=== PATIENT | female | born 1990 ===

== ENCOUNTER 2017-02-07 08:09 | Day surgery (SDC) | payer SELFPAY ==
[2017-02-07] MEDS ORDERED: Strong Iodine Topical Sol. 5%-10% ONE (08:49)
[2017-02-07 08:56] VITALS: O2SAT 100
[2017-02-07] MEDS ORDERED: Lactated Ringer's 1,000 ML IV ONE ×2 (08:57)
[2017-02-07] MEDS: ceFAZolin IV 2 gm in Dextrose 0 GM/0 ML BAG IVPB ONE ×2 (08:57→09:20)
[2017-02-07] MEDS ORDERED: cefOXitin IV 2 gm in Dextrose 2 GM/50 ML BAG IVPB ONE (09:01)
[2017-02-07] MEDS ORDERED: Propofol 10 mg/ml Inj (20 ML) ONE (09:21)
[2017-02-07] MEDS ORDERED: Midazolam 2 MG/2 ML VIAL ONE (09:21)
[2017-02-07] MEDS ORDERED: Vasopressin 20 Units/ml Inj ONE (09:24)
--- NOTE | 2017-02-07 09:57 | PCM.SURG1 ---
Surgeon's Initial Post Op Note - Surgeon's Notes Surgeon: Dr. Patricia Napier In Service Coordinator: none Type of Anesthesia: General LMA Pre-Operative Diagnosis: HERBIE II-III Operative Findings: Normal appearing cervix, uterus approximately 8 week sized anteverted and retroflexed Post-Operative Diagnosis: same Operation Performed: LEEP Specimen/Specimens Removed: portion of cervix Estimated Blood Loss: EBL {In ML}: 1 Blood Products Given: N/A Drains Used: No Drains Post-Op Condition: Good Date of Surgery/Procedure: 02/07/17 Time of Surgery/Procedure: 09:30
--- NOTE | 2017-02-07 09:59 | CP.PCM.DIS ---
Provider - Provider Date of Admission: 02/07/17 Attending physician: Patricia Napier Time Spent in preparation of Discharge (in minutes): 10 Diagnosis - Discharge Diagnosis (1) HERBIE III (cervical intraepithelial neoplasia III) Status: Acute (2) HERBIE II (cervical intraepithelial neoplasia II) Status: Acute Hospital Course - Hospital Course Hospital Course: Patient underwent the previously mentioned procedure and tolerated procedure well. She was then discharged home in stable condition after she was ambulating , voiding and tolerating regular diet. - Date & Time of H&P Date of H&P: 02/07/17 Time of H&P: 09:00 Discharge Plan - Follow Up Plan Disposition: DISCHARGED TO HOME CARE
[2017-02-07] MEDS ORDERED: HYDROmorphone 0.5 mg/0.5 ml ISec IVP PRN (10:13)
[2017-02-07] MEDS ORDERED: Lactated Ringer's 1,000 ML IV SCH (10:15)
--- NOTE | 2017-02-07 11:37 | OP ---
PROCEDURE DATE: 02/07/2017 PREOPERATIVE DIAGNOSES: Cervical intraepithelial neoplasia 2 and cervical intraepithelial neoplasia 3. POSTOPERATIVE DIAGNOSES: Cervical intraepithelial neoplasia 2 and cervical intraepithelial neoplasia 3. SURGEON: Patricia Napier MD TYPE OF ANESTHESIA: General LMA. INTRAOPERATIVE FINDINGS: Normal-appearing cervix; uterus approximately 8-week size, anteverted and retroflexed. PROCEDURE: Loop electrosurgical excision procedure. SPECIMENS REMOVED: A portion of cervix as well as IUD. ESTIMATED BLOOD LOSS: 1 mL. BLOOD PRODUCTS: There were no blood products given. DRAINS: There were no drains. POSTOPERATIVE CONDITION: Stable. ADDITIONAL COMMENTS: All lap counts and instrument counts were correct x2. DESCRIPTION OF PROCEDURE: After all relevant documentation was reviewed and signed by , the patient was taken back to the OR. She was prepped and draped in the usual sterile fashion after being placed under general anesthesia and in lithotomy position. On bimanual examination, the previously mentioned findings were noted. The speculum was then introduced with excellent visualization of the cervix. The cervix was then injected circumferentially with Pitocin and with the use of the loop electrocautery, a portion of the cervix including the external os was removed. Once the portion of the cervix was removed, an ECC was performed and the IUD was removed at this time. The specimens were then sent off. The base of the cervix was then cauterized with the use of ball cautery. Excellent hemostasis was noted. The area was then covered with Monsel's. The speculum was then removed and the patient was then awoken from anesthesia and taken back to the recovery room in stable condition. Patricia Napier MD
[2017-02-07 11:59] VITALS: BP 112/60; PULSE 63; RESP 18; TEMP 97
== END 2017-02-07 12:47 | disposition home health service (06) ==
LOC: C.SDS 08:09
PROVIDERS: ATTEND Obstetrics & Gynecology
DX: D06.1 Carcinoma in situ of exocervix (principal)
CPT/HCPCS: 57461; 88300; 88305; J0694; J2250; J2704; J3010; J7120